=== PATIENT | female | born 1985 | race Two or more races ===

== ENCOUNTER 2022-06-05 10:34 | Emergency (ER) | payer SELFPAY ==
[2022-06-05 10:54] VITALS: TEMP 98.1; BMI 20.6
[2022-06-05] MEDS ORDERED: PROPOFOL 200 MG/20 ML VIAL IVPUSH ONE (11:28)
[2022-06-05] MEDS ORDERED: morphine CARPU-JECT 2 MG/1 ML DISP.SYRIN IVPUSH ONE (11:31)
[2022-06-05] MEDS ORDERED: SODIUM CHLORIDE 1,000 ML IV STA (11:38)
[2022-06-05] MEDS ORDERED: PROPOFOL 20 ML ONE (11:51)
[2022-06-05 12:17] LABS: BASO % 0.5 % (0-2.0); EOS % 0.8 % (0-4.5); HEMATOCRIT 39.1 % (32.4-45.2); HEMOGLOBIN 13.5 GM/dL (10.7-15.3); LYMPH % 9.7 % (8-40); MCH 30.7 pg (25.7-33.7); MCHC 34.4 g/dl (32.0-36.0); MEAN CELL VOLUME 89.1 fl (80-96); MEAN PLT VOLUME 7.9 fl (7.5-11.1); MONO % 4.6 % (3.8-10.2); NEUT % 84.4 % (42.8-82.8); PLATELET COUNT 317 10^3/uL (134-434); RBC 4.39 M/mm3 (3.60-5.2); RDW 12.9 % (11.6-15.6); WHITE BLOOD COUNT 13.1 K/mm3 (4.0-10.0)
[2022-06-05 12:29] LABS: INR 1.18 (0.83-1.09); PROTHROMBIN TIME (PATIENT) 13.6 SEC (9.7-13.0)
[2022-06-05 12:49] LABS: ALBUMIN 3.8 g/dl (3.4-5.0)
[2022-06-05 12:50] LABS: BLOOD UREA NITROGEN 9.6 mg/dL (7-18)
[2022-06-05 12:52] LABS: CREATININE 0.6 mg/dL (0.55-1.3)
[2022-06-05 12:54] LABS: BILIRUBIN,TOTAL 0.5 mg/dL (0.2-1); TOT PROT 7.2 g/dl (6.4-8.2)
[2022-06-05 13:03] VITALS: PULSE 74
[2022-06-05 14:41] VITALS: BP 119/73; RESP 18
== END 2022-06-05 14:30 | disposition home or self-care (01) ==
LOC: JER 10:34
PROC: 3E033NZ Introduction of Analgesics, Hypnotics, Sedatives into Peripheral Vein, Percutaneous Approach (ICD-10-PCS; principal; 2022-06-05)
PROC: 3E033GC Introduction of Other Therapeutic Substance into Peripheral Vein, Percutaneous Approach (ICD-10-PCS; 2022-06-05)
PROC: 3E0337Z Introduction of Electrolytic and Water Balance Substance into Peripheral Vein, Percutaneous Approach (ICD-10-PCS; 2022-06-05)
DX: S53.104A Unspecified dislocation of right ulnohumeral joint, initial encounter (principal); W01.0XXA Fall on same level from slipping, tripping and stumbling without subsequent striking against object, initial encounter
CPT/HCPCS: 36415; 71045-TC-FY; 73070-TC-RT-FY; 73110-TC-RT-FY; 80053; 84484; 85025; 85610; 86850; 86870; 86900; 86901; 86902; 93005; 93010; 99285-25

== ENCOUNTER 2023-06-28 16:30 | Emergency (ER) | payer OTHER ==
[2023-06-28 17:11] VITALS: BP 132/78; PULSE 82; RESP 17; TEMP 97.8; BMI 24.7
[2023-06-28] MEDS ORDERED: ACETAMINOPHEN 1000 MG/100 ML BAG IVPB ONE (18:21)
[2023-06-28] MEDS ORDERED: METOCLOPRAMIDE HCL INJECTION 10 MG/2 ML VIAL IVPUSH ONE (18:21)
[2023-06-28] MEDS ORDERED: SODIUM CHLORIDE 1,000 ML IV STA (18:21)
[2023-06-28] MEDS ORDERED: ACETAMINOPHEN INJECTION 100 ML IVPB ONE (20:03)
[2023-06-28] MEDS ORDERED: METOCLOPRAMIDE HCL INJECTION 10 MG/2 ML VIAL ONE (20:41)
[2023-06-28 20:48] LABS: BASO % 0.9 % (0-2.0); EOS % 2.3 % (0-4.5); HEMATOCRIT 38.7 % (32.4-45.2); HEMOGLOBIN 13.5 GM/dL (10.7-15.3); LYMPH % 33.3 % (8-40); MCH 30.2 pg (25.7-33.7); MCHC 34.9 g/dl (32.0-36.0); MEAN CELL VOLUME 86.6 fl (80-96); MEAN PLT VOLUME 7.5 fl (7.5-11.1); MONO % 6.6 % (3.8-10.2); NEUT % 56.9 % (42.8-82.8); PLATELET COUNT 336 10^3/uL (134-434); RBC 4.46 M/mm3 (3.60-5.2); RDW 13.3 % (11.6-15.6); WHITE BLOOD COUNT 9.6 K/mm3 (4.0-10.0)
[2023-06-28 20:53] LABS: HCG,QUALITATIVE URINE Negative
[2023-06-28 21:20] LABS: POTASSIUM 3.6 mmol/L (3.5-5.1)
[2023-06-28 21:22] LABS: ALBUMIN 3.9 g/dl (3.4-5.0); BLOOD UREA NITROGEN 13.2 mg/dL (7-18); CALCIUM 8.9 mg/dL (8.5-10.1)
[2023-06-28 21:26] LABS: CREATININE 0.6 mg/dL (0.55-1.3)
[2023-06-28 21:27] LABS: BILIRUBIN,TOTAL 0.3 mg/dL (0.2-1); TOT PROT 7.6 g/dl (6.4-8.2)
[2023-06-28 21:29] LABS: EPI CELLS >36 /uL (0-25.1); HYALINE CASTS 1 /uL (0-3.1); PH,URINE 5.5 (5.0-8.0); URINE APPEARANCE CLOUDY; URINE BACTERIA 4924 /uL (0-1359); URINE BILIRUBIN NEGATIVE (NEGATIVE); URINE COLOR YELLOW; URINE GLUCOSE (UA) NEGATIVE (NEGATIVE); URINE KETONE NEGATIVE (NEGATIVE); URINE LEUK ESTERASE TRACE (NEGATIVE); URINE NITRITE NEGATIVE (NEGATIVE); URINE PROTEIN NEGATIVE (NEGATIVE); URINE RBC 4 /uL (0-23.9); URINE UROBILINOGEN 0.2 mg/dL (0.2-1.0); URINE WBC 71 /uL (0-25.8)
[2023-06-28 21:55] LABS: INR 1.03 (0.83-1.09)
[2023-06-28 21:57] LABS: ACTIVATED PTT 34.1 SECONDS (25.2-36.5)
== END 2023-06-28 22:43 | disposition home or self-care (01) ==
LOC: JER 16:30
PROC: 3E033NZ Introduction of Analgesics, Hypnotics, Sedatives into Peripheral Vein, Percutaneous Approach (ICD-10-PCS; principal; 2023-06-28)
PROC: 3E033GC Introduction of Other Therapeutic Substance into Peripheral Vein, Percutaneous Approach (ICD-10-PCS; 2023-06-28)
DX: R51.9 Headache, unspecified (principal); N39.0 Urinary tract infection, site not specified; R53.1 Weakness; R20.0 Anesthesia of skin; R42 Dizziness and giddiness; Z20.822 Contact with and (suspected) exposure to COVID-19
CPT/HCPCS: 0241U-QW; 36415; 70450-TC; 80053; 81003; 84703; 85025; 85610; 85730; 87086; 93005; 93010; 99285-25

== ENCOUNTER 2023-09-07 10:42 | Emergency (ER) | payer OTHER ==
[2023-09-07 11:13] VITALS: BP 96/64; PULSE 82; RESP 18; TEMP 97.5; BMI 22.8
[2023-09-07] MEDS ORDERED: SODIUM CHLORIDE 1,000 ML IV STA (12:59)
[2023-09-07] MEDS ORDERED: ONDANSETRON 4 MG/2 ML VIAL IVPUSH ONE (12:59)
[2023-09-07] MEDS ORDERED: FAMOTIDINE 20 MG/50 ML IVPB 20 MG/50 ML MG IVPB ONE ×2 (12:59→14:13)
[2023-09-07 14:04] LABS: BASO % 1.2 % (0-2.0); EOS % 2.4 % (0-4.5); HEMATOCRIT 40.6 % (32.4-45.2); HEMOGLOBIN 13.8 GM/dL (10.7-15.3); LYMPH % 25.4 % (8-40); MCH 29.9 pg (25.7-33.7); MCHC 33.8 g/dl (32.0-36.0); MEAN CELL VOLUME 88.4 fl (80-96); MEAN PLT VOLUME 7.5 fl (7.5-11.1); MONO % 6.3 % (3.8-10.2); NEUT % 64.7 % (42.8-82.8); PLATELET COUNT 308 10^3/uL (134-434); WHITE BLOOD COUNT 7.9 K/mm3 (4.0-10.0)
[2023-09-07] MEDS ORDERED: ONDANSETRON 4 MG/2 ML VIAL ONE (14:13)
[2023-09-07 14:28] LABS: POTASSIUM 3.7 mmol/L (3.5-5.1)
[2023-09-07 14:30] LABS: ALBUMIN 3.9 g/dl (3.4-5.0); CALCIUM 9.3 mg/dL (8.5-10.1)
[2023-09-07 14:32] LABS: BLOOD UREA NITROGEN 8.6 mg/dL (7-18)
[2023-09-07 14:33] LABS: CREATININE 0.6 mg/dL (0.55-1.3)
[2023-09-07 14:36] LABS: BILIRUBIN,TOTAL 0.4 mg/dL (0.2-1); TOT PROT 7.5 g/dl (6.4-8.2)
[2023-09-07 14:45] LABS: EPI CELLS >36 /uL (0-25.1); HCG,QUALITATIVE URINE Negative; HYALINE CASTS 0 /uL (0-3.1); URINE APPEARANCE CLOUDY; URINE BACTERIA 909 /uL (0-1359); URINE BILIRUBIN NEGATIVE (NEGATIVE); URINE COLOR YELLOW; URINE GLUCOSE (UA) NEGATIVE (NEGATIVE); URINE KETONE NEGATIVE (NEGATIVE); URINE LEUK ESTERASE NEGATIVE (NEGATIVE); URINE NITRITE NEGATIVE (NEGATIVE); URINE PROTEIN NEGATIVE (NEGATIVE); URINE WBC 9 /uL (0-25.8)
[2023-09-07 14:53] LABS: URINE RBC 21.8 /uL (0-23.9)
== END 2023-09-07 16:17 | disposition home or self-care (01) ==
LOC: JER 10:42
PROC: 3E033GC Introduction of Other Therapeutic Substance into Peripheral Vein, Percutaneous Approach (ICD-10-PCS; principal; 2023-09-07)
PROC: 3E033GC Introduction of Other Therapeutic Substance into Peripheral Vein, Percutaneous Approach (ICD-10-PCS; 2023-09-07)
DX: R05.9 Cough, unspecified (principal); R10.84 Generalized abdominal pain; R11.2 Nausea with vomiting, unspecified; K29.00 Acute gastritis without bleeding; Z20.822 Contact with and (suspected) exposure to COVID-19
CPT/HCPCS: 0241U-QW; 36415; 80053; 81003; 83690; 84703; 85025; 87086; 99284-25